=== PATIENT | female | born 1960 | race Hispanic/Latino ===

== ENCOUNTER 2019-02-11 21:09 | Emergency (ER) | payer OTHER ==
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
[2019-02-11] MEDS ORDERED: IBUPROFEN PO STA (21:46)
--- NOTE | 2019-02-11 22:18 | XRay Report ---
PROCEDURE: XR SPINE CERVICAL 2-3V TECHNIQUE: Cervical spine 4 views HISTORY: neck pain COMPARISONS: FINDINGS: Vertebral bodies are normal in height. There is minimal grade 1 anterolisthesis of C3 relative to C4 this appears degenerative. There is facet joint arthropathy at C3-C4. Small marginal osteophytes are noted. No acute fracture or malalignment identified. Spinous processes are intact. IMPRESSION: Facet joint arthropathy with mild spondylolisthesis at C3-C4 Otherwise negative study. This document is electronically signed by Eduardo Bae MD., February 11 2019 10:16:31 PM ET
[2019-02-12] MEDS ORDERED: NORCO 5/325 PO ONE (01:00)
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
[2019-02-12 01:37] VITALS: BP 156/80
== END 2019-02-12 02:50 ==
LOC: ED 21:09
DX: S16.1XXA Strain of muscle, fascia and tendon at neck level, initial encounter (principal); S46.911A Strain of unspecified muscle, fascia and tendon at shoulder and upper arm level, right arm, initial encounter; F17.200 Nicotine dependence, unspecified, uncomplicated; Z79.899 Other long term (current) drug therapy; Z88.8 Allergy status to other drugs, medicaments and biological substances; V49.59XA Passenger injured in collision with other motor vehicles in traffic accident, initial encounter; Y93.89 Activity, other specified; Y92.488 Other paved roadways as the place of occurrence of the external cause; Y99.8 Other external cause status
CPT/HCPCS: 72040; 99283